=== PATIENT | male | born 1955 | race Caucasian/White ===

== ENCOUNTER 2017-12-08 15:59 | Observation (INO) ==
[2017-12-08] MEDS ORDERED: Naloxone 0.4 MG/ML INJ IVP PRN (23:34)
[2017-12-08] MEDS ORDERED: Acetaminophen 325 MG TABLET PO PRN (23:34)
[2017-12-08] MEDS ORDERED: Ondansetron 4 MG/2 ML VIAL IVP PRN (23:36)
--- NOTE | 2017-12-08 23:55 | Internal Med History&Physical ---
Date of Encounter: 12/09/17 Time of Encounter: 23:00 Internal Medicine - H&P: HPI Chief complaint: Acute encephalopathy Admitted From: Hospital to Hospital Transfer Plans for Post Hospital Care: Home History of present illness: Mr. Ch is a 62 year old male Patient presented to the [facility] emergency room with a chief complaint of confusion as noted by patient's sister. History obtained from [facility] emergency room record, family not at bedside during examination at [facility]. ER record notes that the patient's sister has noted increased confusion , vomiting, diarrhea for the last day. Patient has not been taking his medications and stated that his "nerves are shot, I want to be left alone." In the emergency room patient's BMP is within normal limits, CBC showed a white blood cell count of 146.8, and platelets of 172. Patient has a history of CLL and cirrhosis. Patient's ammonia level is 19, alkaline phosphatase was 63, AST 66, ALT 81. Patient's urinalysis was negative for nitrites and leukocyte esterase. Urine tox screen was positive for cannabis and benzodiazepines. Patient's blood alcohol level was less than 10. Chest x-ray performed showed no acute findings, and CT head was also negative. EKG showed sinus bradycardia with a rate of 47 and a QTc of 419. He was transferred to [facility] for further evaluation of his acute encephalopathy. Upon my assessment patient is alert and oriented to self, place and time. He is confused and does not answer my questions very well often going down tangents of thought. He seems agitated and angry with his sister for getting him admitted to the hospital. He denies nausea, chest pain and shortness of breath. He did have some vomiting and diarrhea the day prior to admission but not any today. He states that he has not been taking his medicine because he ran out in his doctor will not give it to him. Past Med Surg Social Fam HX - Past Medical History Additional medical history: patient unable to provide any information - Past Surgical History Additional surgical history: patient unable to provide any information - Social History Smoking Status: Unknown if ever smoked Internal Medicine - H&P: Meds 3 Allergy/AdvReac Type Severity Reaction Status Date / Time morphine Allergy Nausea Verified 12/08/17 18:36 All Systems PM: A 10-system review of systems was performed and is negative for pertinent findings except as documented above in the HPI. - Constitutional Vitals: Temp Pulse Resp BP Pulse Ox 98 F 57 18 119/74 98 12/08/17 23:45 12/08/17 23:45 12/08/17 23:45 12/08/17 23:45 12/08/17 23:45 General appearance: Present: cooperative, A&O X 3. Absent: pleasant, answers questions appropriately Exam: Irritable, oriented to self, place, time. Did not answer exam questions appropriately, often going off on tangents. - Head Head exam: Present: normal inspection - Eye Eye exam: Present: EOMI, normal appearance - Neck Neck exam general surgery: Present: full ROM - Respiratory Respiratory exam: Present: CTAB. Absent: respiratory distress, wheezes - Cardiovascular Cardiovascular exam: Present: bradycardia, RRR. Absent: diastolic murmur, systolic murmur - GI/Abdominal GI/Abdominal exam: Present: normal bowel sounds, soft. Absent: tenderness - Extremities Exam Extremities exam: Present: warm, radial pulses palpable and symmetrical. Absent : calf tenderness, pedal edema, tenderness - Neurological Exam Neurological exam: Present: no focal deficits, strengths equal and symetr throughout. Absent: motor sensory deficit, facial droop, speech deficit - Psychiatric Psychiatric exam: Present: agitated - Skin Skin exam: Present: dry, normal color, warm - Assessment and plan (1) Acute encephalopathy Current Visit: Yes Status: Acute Assessment and plan: Patient often would get off on his are tangential thoughts that had nothing to do with questions that I asked him during the exam. According to ER records and the sister of the patient this is a new finding for him. U tox positive for benzodiazepines and marijuana. Patient does state that he smokes marijuana often and has been using it to help with his chronic medical problems. He also uses benzodiazepines for anxiety. His UA was negative for infection, he does have a significant history of CLL and cirrhosis. His ammonia level was not elevated however his white blood cell count was significantly elevated. He has not been following up with his oncology doctors. Patient's workup essentially normal besides the urine tox screen, which is likely contributing to his confusion. Patient's recent history of possible gastroenteritis could also contribute to confusion. Hold sedating medications particularly benzodiazepines Patient currently does not require a bedside sitter however will consider if patient becomes more confused. Psychiatry consult in the morning (2) Nausea & vomiting Current Visit: Yes Status: Acute Assessment and plan: Now resolved, likely possibly related to viral gastroenteritis. Continue to monitor Zofran as needed Qualifiers: Qualified Code(s): R11.2 - Nausea with vomiting, unspecified (3) Bradycardia Current Visit: Yes Status: Acute Assessment and plan: Patient's heart rate was 47 on EKG. Unclear if this is baseline for patient as no previous history exists in our records. color television console monitor (4) History of chronic lymphocytic leukemia Current Visit: Yes Status: Acute Assessment and plan: Patient has history of CLL, with elevated white blood cell count. Has not been following with oncology. (5) Nicotine dependence Current Visit: Yes Status: Acute Assessment and plan: Nicotine patch Qualifiers: Nicotine product type: cigarettes Substance use status: uncomplicated Qualified Code(s): F17.210 - Nicotine dependence, cigarettes, uncomplicated (6) Marijuana smoker Current Visit: Yes Status: Acute Assessment and plan: Daily marijuana use. Hold marijuana exposure as could be contributing to his encephalopathy (7) History of cirrhosis Current Visit: Yes Status: Acute Assessment and plan: Ammonia level not elevated, patient also has history of hep C. Continue to monitor (8) History of alcohol abuse Current Visit: Yes Status: Acute Assessment and plan: Alcohol level less than 10. No signs of withdrawal at this time. Consider CIWA patient presenting with withdrawal like symptoms (9) DVT prophylaxis Current Visit: Yes Status: Acute Assessment and plan: SCDs - Time Spent With Patient Total time spent is greater than 50% in coordination of care (as documented) at patient's floor/unit and/or counseling patient: Greater than 35 minutes
[2017-12-09] MEDS ORDERED: *HR* Dextrose 50 % in Water (Syg) 50 ML SYRINGE IVP PRN (00:02)
[2017-12-09] MEDS ORDERED: D5% in Water 1,000 ML IVC PRN (00:02)
[2017-12-09] MEDS ORDERED: Dextrose Gel 15 GM/37.5 ML TUBE PO PRN ×2 (00:02)
[2017-12-09] MEDS: Nicotine 21 MG PATCH.TD24 TD SCH ×2 (01:41→09:47)
[2017-12-09 04:40] LABS: Hematocrit 40.6 % (37.5-50.1); Mean Corpuscular Volume 90.4 fL (83.0-100.0); Mean Platelet Volume 10.6 fL (9.4-12.4); Platelet Count 144 K/mcL (140-400); Red Blood Count 4.49 M/mcL (4.19-5.50); Red Cell Distribution Width 13.4 % (11.5-14.5)
[2017-12-09 05:00] LABS: BUN/Creatinine Ratio 21 (6-26); Blood Urea Nitrogen 18 mg/dL (8-23); Calcium 8.7 mg/dL (8.6-10.3); Carbon Dioxide 26 mEq/L (23-29); Chloride 104 mEq/L (98-107); Glucose 135 mg/dL (70-105); Osmolality,Calculated 288 (280-300); Potassium 4.2 mEq/L (3.5-5.1); Sodium 137 mEq/L (136-145); eGFR For Non-African Americans > 60 (> 60)
[2017-12-09 05:40] LABS: Lymphocytes # 127.8 K/mcL (0.6-4.6); Neutrophils # 5.3 K/mcL (1.6-8.9); Smudge Cells Present (Not Present)
[2017-12-09 05:41] LABS: Platelet Estimate Normal (Normal)
[2017-12-09] MEDS: Insulin LISPRO 300 UNITS/3 ML VIAL SQ SCH ×4 (07:56→20:42)
[2017-12-09] MEDS ORDERED: *HR* LORazepam 2 MG/ML VIAL IVP ONE (09:39)
[2017-12-09] MEDS ORDERED: Gadolinium Contrast Agent (WT Based) IV PRN (09:45)
[2017-12-09] MEDS ORDERED: *HR* LORazepam 1 MG TABLET PO ONE (10:05)
--- NOTE | 2017-12-09 11:10 | Consult Note ---
Date of Encounter: 12/09/17 Time of Encounter: 10:15 Assessment & Recommendation (1) Acute encephalopathy Current visit: Yes Status: Acute (2) Marijuana smoker Current visit: Yes Status: Acute History of Present Illness Patient: new to practice Requesting Physician: Bianka Le MD Reason for consult: altered mental status History of present illness: Mr. Ch is a 62 year old male was consulted for Altered metal status. Chart reviewed , he has h/o multiple medical problems including CLL , Chirosis and his tox was positive for marijuana and benzo, At present was able to give some history but had intermittent periods of confusion , his thought process was tangential and he had to be redirected several times. he states he takes medicine for his nerves and they stopped it , they had been changing his medication and he was out of his medicine , denied using more than prescribed his nerve pills, he stated he has cancer and has not seen his cancer doctor , he denied any alcohol , he denied any street drugs, he admitted to seeing shadows but no auditory hallucination , no agitation noted during interview, no paranoia. he denies any other psychiatric signs/symptoms, denies any other psych h/o, no collateral available at [facility]. A/P AMS secondary to medical illness. if agitated can give low dose haldol , no other recommendation. Thank you for consult Will sign off , if any question please call. CC: Bianka Le MD I am sick , they keep changing my medicine. Past Med Surg Social Fam HX - Past Psychiatric History Psychiatric history: Reports: no psych history Family psychiatric history: Unknown Family History of Suicide: Unknown - Social History Smoking Status: Unknown if ever smoked Medications & Allergies Esomeprazole Magnesium [Nexium] 40 mg PO DAILY 12/09/17 [History] Furosemide [Lasix] 40 mg PO DAILY 12/09/17 [History] Gabapentin [Neurontin] 400 mg PO BID 12/09/17 [History] Lisinopril 2.5 mg PO DAILY 12/09/17 [History] Metformin HCl 500 mg PO DAILY 12/09/17 [History] Metoprolol [Lopressor] 12.5 mg PO BID 12/09/17 [History] Ranitidine HCl [Acid Plastics Factory Worker] 150 mg PO BID 12/09/17 [History] Spironolactone [Aldactone] 100 mg PO DAILY 12/09/17 [History] Tamsulosin HCl [Flomax] 0.4 mg PO DAILY 12/09/17 [History] diazePAM [Valium] 2 mg PO TID 12/09/17 [History] traZODone [TraZODone] 50 mg PO HS 12/09/17 [History] 3 Allergy/AdvReac Type Severity Reaction Status Date / Time morphine Allergy Nausea Verified 12/08/17 18:36 Psychiatry Exam - Constitutional Vitals: Temp Pulse Resp BP Pulse Ox 98.2 F 57 18 133/78 97 12/09/17 06:50 12/09/17 06:50 12/09/17 06:50 12/09/17 06:50 12/09/17 06:50 General appearance: thin - Psychiatric Patient Orientation: Yes Time, Yes Place Level of alertness: Alert Behavior: calm, cooperative Eye Contact: Maintains Eye Contact Mood Description: Euthymic/stable Affect description: constricted Speech Volume: Normal Speech pattern: excessive Language & Vocabulary: consistent with education Thought Process: Tangential Thought Content: Yes Intact Perceptual Disturbances: No Auditory hallucinations, No Visual hallucinations Attention Span Ability: Unable to Sustain Attention Judgment: Limited (secondary to AMS) Insight: Full Results - Labs Labs: Laboratory Last Values WBC 133.1 K/mcL (4.3-11.1) H* 12/09/17 04:04 RBC 4.49 M/mcL (4.19-5.50) 12/09/17 04:04 Hgb 13.0 g/dL (12.9-16.9) 12/09/17 04:04 Hct 40.6 % (37.5-50.1) 12/09/17 04:04 MCV 90.4 fL (83.0-100.0) 12/09/17 04:04 MCH 29.0 pg (28.0-33.3) 12/09/17 04:04 MCHC 32.0 g/dL (31.6-35.5) 12/09/17 04:04 RDW 13.4 % (11.5-14.5) 12/09/17 04:04 Plt Count 144 K/mcL (140-400) 12/09/17 04:04 MPV 10.6 fL (9.4-12.4) 12/09/17 04:04 Seg Neutrophils % 4.0 % 12/09/17 04:04 Lymphocytes % 96.0 % 12/09/17 04:04 Neutrophils # 5.3 K/mcL (1.6-8.9) 12/09/17 04:04 Lymphocytes # 127.8 K/mcL (0.6-4.6) H 12/09/17 04:04 Smudge Cells Present (Not Present) A 12/09/17 04:04 Platelet Estimate Normal (Normal) 12/09/17 04:04 Sodium 137 mEq/L (136-145) 12/09/17 04:04 Potassium 4.2 mEq/L (3.5-5.1) 12/09/17 04:04 Chloride 104 mEq/L (98-107) 12/09/17 04:04 Carbon Dioxide 26 mEq/L (23-29) 12/09/17 04:04 BUN 18 mg/dL (8-23) 12/09/17 04:04 Creatinine 0.86 mg/dL (0.70-1.30) 12/09/17 04:04 Est GFR ( Amer) > 60 (> 60) 12/09/17 04:04 Est GFR (Non-Af Amer) > 60 (> 60) 12/09/17 04:04 BUN/Creatinine Ratio 21 (6-26) 12/09/17 04:04 Glucose 135 mg/dL (70-105) H 12/09/17 04:04 POC Glucose 99 mg/dL (70-99) 12/09/17 07:40 Calculated Osmolality 288 (280-300) 12/09/17 04:04 Calcium 8.7 mg/dL (8.6-10.3) 12/09/17 04:04 Consult Discharge Plan - Plan Referrals: NONE,PCP [Primary Care Provider] - Lora Schultz [Family Provider] -
--- NOTE | 2017-12-09 12:14 | Internal Med Progress Note ---
Hospitalist Progress Note - Encounter Date of Encounter: 12/09/17 Time of Encounter: 12:10 - Subjective Interval History: She is seen and examined in the room, is having constant left-sided body and left face j jerking movement, eyes also moving towards the left side. He maintains his posture, but does not answer any questions. - Exam Vitals: Temp Pulse Resp BP Pulse Ox 98.1 F 73 18 143/82 98 12/09/17 12:02 12/09/17 12:02 12/09/17 12:02 12/09/17 12:12/09/17 12:02 Exam: PHYSICAL EXAMINATION: GENERAL APPEARANCE: The patient is alert, oriented and in no acute distress. HEENT: Head is normocephalic. The sinuses are nontender. Pupils are equal and reactive. The nares are patent. Oropharynx clear without lesions. NECK: Supple without lymphadenopathy. HEART: Regular rate and rhythm. LUNGS: No crackles or wheezes are heard. ABDOMEN: Soft, nontender, nondistended with good bowel sounds heard. Inguinal area is normal. EXTREMITIES: Without cyanosis, clubbing or edema. NEUROLOGICAL: Gross nonfocal. SKIN: Warm and dry without any rash. - Assessment and Plan (1) Acute encephalopathy Current Visit: Yes Status: Acute Assessment and Plan: 82-year-old male with past medical history of anxiety, LDL, and alcohol abuse presented with another status change. Labs revealed a positive drug screen test with benzodiazepine and the marijuana. He also had presumably seizure activity this morning. 2 mg IV Ativan was given, patient mental status quickly recovered to his baseline. He is able to talk and answer questions. - he take a Valium 3 times a day at home, we will resume Valium. Neurology consult. MRI brain was ordered. - Psychiatry was consulted, suggested that the mental status change may be caused by metabolic/medication side effect. - Continue IV fluid, continue seizure precaution. (2) Nausea & vomiting Current Visit: Yes Status: Acute Assessment and Plan: Supportive care. (3) History of chronic lymphocytic leukemia Current Visit: No Status: Chronic Assessment and Plan: Hematology/oncology consulted. (4) Marijuana smoker Current Visit: Yes Status: Acute (5) History of cirrhosis Current Visit: Yes Status: Acute Assessment and Plan: Stable, monitoring. (6) History of alcohol abuse Current Visit: Yes Status: Acute Assessment and Plan: Discussed with patient about alcohol cessation. (7) DVT prophylaxis Current Visit: Yes Status: Acute Assessment and Plan: SCDs. - Time Spent with Patient Total time spent is greater than 50% in coordination of care (as documented) at patient's floor/unit and/or counseling patient: Greater than 35 minutes Plan of Care Discussed with: patient Internal Medicine: Result - Labs CBC & Chem 7: 12/09/17 04:04 12/09/17 04:04 Labs: Short CBC 12/09/17 Range/Units 04:04 WBC 133.1 H* (4.3-11.1) K/mcL Hgb 13.0 (12.9-16.9) g/dL Hct 40.6 (37.5-50.1) % Plt Count 144 (140-400) K/mcL Neutrophils # 5.3 (1.6-8.9) K/mcL BMP 12/09/17 04:04 Sodium 137 Potassium 4.2 Chloride 104 Carbon Dioxide 26 BUN 18 Creatinine 0.86 Glucose 135 H Calcium 8.7 Consult Discharge Plan - Plan Referrals: NONE,PCP [Primary Care Provider] - Lora Schultz [Family Provider] - (2) Nausea & vomiting Qualifiers: Vomiting type: unspecified Vomiting Intractability: unspecified Qualified Code(s): R11.2 - Nausea with vomiting, unspecified
--- NOTE | 2017-12-09 13:07 | Oncology Inp Consult Note ---
<Jordyn Grimm L - Last Filed: 12/09/17 16:33> Date of Encounter: 12/09/17 Time of Encounter: 12:30 Assessment and Plan (1) Acute encephalopathy Status: Acute Assessment and plan: This process is likely unrelated to his CLL CT head negative per admission record MRI brain pending May be multifactorial secondary to benzo, alcohol withdrawal and use of recreational drugs versus metabolic Psychiatry consult reviewed, Neuro has also been consulted (2) History of chronic lymphocytic leukemia Status: Chronic Assessment and plan: Currently WBC 133, Lymphocyte count 127 No other noted CBC abnormality or cytopenia He does not recall prior counts or his last visit with [facility] He does report fevers, chills, night sweats and weight loss but this may be secondary to his acute gastrointestinal process, he also appears to be a very poor historian/confused at times. He does have palpable left posterior auricular, left cervical and right supraclavicular adenopathy No acute oncologic intervention is warranted at this time. I do encourage continued follow up with oncology for close monitoring of his symptoms and lymphadenopathy once his acute issues resolve. He prefers to follow up with [facility] versus [facility]. We will check an LDH with AM labs. - Data of Consult Patient: new to practice Consult date: 12/09/17 Requesting Physician: Bianka Le MD Primary Care Provider: PCP DALIA Family Provider: [place] Provider - Consult Narrative Reason for consult: CLL History of present illness: Mr. Ch is a 62 year old male with past medical history significant for CLL and cirrhosis according to chart review. Patient himself is a poor historian, and while he appears oriented presently, he appears to have intermittent periods of confusion and needs redirection often. He states he presented to ER because he was "out of all of his medications". From chart review, it appears that patient initially presented to [facility] ER under the care of patients sister secondary to her concern over patients increased confusion. CBC showed a white blood cell count of 146.8, and platelets of 172. Patient has a history of CLL and cirrhosis. Patient's ammonia level is 19, alkaline phosphatase was 63, AST 66, ALT 81. Patient's urinalysis was negative for nitrites and leukocyte esterase. Urine tox screen was positive for cannabis and benzodiazepines. Patient's blood alcohol level was less than 10. Chest x-ray performed showed no acute findings, and CT head was also negative. EKG showed sinus bradycardia with a rate of 47. He was transferred to [facility] for further evaluation of his acute encephalopathy. Mr. Ch states he was diagnosed with CLL an uncertain time ago, he has not follow up with his oncologist at [facility] for an unknown period of time. According to patient he was only previously monitored for his CLL which has not required initiation of treatment. When questioned in regards to ROS, Mr. Ch reports decreased appetite, unintended weight loss, painful lymphadenopathy, fever, chills and night sweats. He reports increased fatigue, abdominal pain, nausea and vomiting which has been acute and led to his presentation to the ER. Past Med Surg Social Fam HX - Past Medical History Additional medical history: patient unable to provide any information Psychiatric history: no psych history - Past Surgical History Additional surgical history: patient unable to provide any information - Social History Smoking Status: Unknown if ever smoked Medications and Allergies Esomeprazole Magnesium [Nexium] 40 mg PO DAILY 12/09/17 [History] Furosemide [Lasix] 40 mg PO DAILY 12/09/17 [History] Gabapentin [Neurontin] 400 mg PO BID 12/09/17 [History] Lisinopril 2.5 mg PO DAILY 12/09/17 [History] Metformin HCl 500 mg PO DAILY 12/09/17 [History] Metoprolol [Lopressor] 12.5 mg PO BID 12/09/17 [History] Ranitidine HCl [Acid Maintenance Person] 150 mg PO BID 12/09/17 [History] Spironolactone [Aldactone] 100 mg PO DAILY 12/09/17 [History] Tamsulosin HCl [Flomax] 0.4 mg PO DAILY 12/09/17 [History] diazePAM [Valium] 2 mg PO TID 12/09/17 [History] traZODone [TraZODone] 50 mg PO HS 12/09/17 [History] 3 Allergy/AdvReac Type Severity Reaction Status Date / Time morphine Allergy Nausea Verified 12/08/17 18:36 Constitutional: Present: anorexia, chills, fatigue, fever(s), night sweats, weakness, weight loss. Absent: frequent falls, headache(s) Eyes: Absent: change in vision Nose, mouth and throat: Absent: dysphagia Cardiovascular: Absent: chest pain Respiratory: Absent: cough, dyspnea, hemoptysis Gastrointestinal: Present: abdominal pain, diarrhea, nausea, vomiting. Absent: hematemesis, hematochezia, melena Additional comments: denies dysuria Musculoskeletal: Present: muscle weakness Integumentary: Absent: wounds Neurological: Present: confusion. Absent: focal weakness, frequent falls Psychiatric: Present: confusion, hallucinations Hematologic/Lymphatic: Present: lymphadenopathy Oncology - Exam - Constitutional Vitals: Temp Pulse Resp BP Pulse Ox 98.1 F 73 18 143/82 98 12/09/17 12:02 12/09/17 12:02 12/09/17 12:02 12/09/17 12:02 12/09/17 12:02 General appearance: cooperative, disheveled, no acute distress, no febrile - Head Head exam: Present: atraumatic - ENT ENT exam: Present: mucous membranes moist - Neck Neck exam: Present: lymphadenopathy Additional comments: left posterior auricular, left cervical, right supraclavicular - Respiratory Respiratory exam: Present: CTAB. Absent: respiratory distress - Cardiovascular Cardiovascular exam: Present: RRR, +S1, +S2 - GI/Abdominal GI/Abdominal exam: Present: normal bowel sounds, soft. Absent: guarding, rebound - Extremities Exam Extremities exam: Present: normal inspection. Absent: calf tenderness - Neurological Exam Neurological exam: Present: alert, oriented X3, no focal deficits, strengths equal and symetr throughout - Psychiatric Psychiatric exam: Present: normal affect, normal mood. Absent: agitated Additional comments: Tangential thought process noted - Skin Skin exam: Present: dry, intact, normal color, warm Oncology - Results Labs: 3 12/09/17 12/09/17 12/09/17 12:00 07:40 04:04 WBC RBC Hgb Hct MCV MCH MCHC RDW Plt Count MPV Seg Neutrophils % Lymphocytes % Neutrophils # Lymphocytes # Smudge Cells Platelet Estimate Sodium 137 Potassium 4.2 Chloride 104 Carbon Dioxide 26 BUN 18 Creatinine 0.86 Est GFR ( Amer) > 60 Est GFR (Non-Af Amer) > 60 BUN/Creatinine Ratio 21 Glucose 135 H POC Glucose 104 H 99 Calculated Osmolality 288 Calcium 8.7 3 12/09/17 04:04 WBC 133.1 H* RBC 4.49 Hgb 13.0 Hct 40.6 MCV 90.4 MCH 29.0 MCHC 32.0 RDW 13.4 Plt Count 144 MPV 10.6 Seg Neutrophils % 4.0 Lymphocytes % 96.0 Neutrophils # 5.3 Lymphocytes # 127.8 H Smudge Cells Present A Platelet Estimate Normal Sodium Potassium Chloride Carbon Dioxide BUN Creatinine Est GFR ( Amer) Est GFR (Non-Af Amer) BUN/Creatinine Ratio Glucose POC Glucose Calculated Osmolality Calcium Consult Discharge Plan - Plan Referrals: NONE,PCP [Primary Care Provider] - Lora Schultz [Family Provider] - Inpatient Charges Provider: Dr. Hung Somers <Lauri Somers - Last Filed: 12/09/17 21:04> Date of Encounter: 12/09/17 - Data of Consult Requesting Physician: Bianka Le MD Primary Care Provider: PCP NONE Family Provider: [place] Provider - Consult Narrative History of present illness: Mr. Ch is a 62 year old male Oncology - Exam - Constitutional Vitals: Temp Pulse Resp BP Pulse Ox 98.2 F 92 16 131/86 96 12/09/17 19:12 12/09/17 19:12 12/09/17 19:12 12/09/17 19:12 12/09/17 19:12 Oncology - Results Labs: 3 12/09/17 12/09/17 12/09/17 12:00 07:40 04:04 WBC RBC Hgb Hct MCV MCH MCHC RDW Plt Count MPV Seg Neutrophils % Lymphocytes % Neutrophils # Lymphocytes # Smudge Cells Platelet Estimate Sodium 137 Potassium 4.2 Chloride 104 Carbon Dioxide 26 BUN 18 Creatinine 0.86 Est GFR ( Amer) > 60 Est GFR (Non-Af Amer) > 60 BUN/Creatinine Ratio 21 Glucose 135 H POC Glucose 104 H 99 Calculated Osmolality 288 Calcium 8.7 3 12/09/17 04:04 WBC 133.1 H* RBC 4.49 Hgb 13.0 Hct 40.6 MCV 90.4 MCH 29.0 MCHC 32.0 RDW 13.4 Plt Count 144 MPV 10.6 Seg Neutrophils % 4.0 Lymphocytes % 96.0 Neutrophils # 5.3 Lymphocytes # 127.8 H Smudge Cells Present A Platelet Estimate Normal Sodium Potassium Chloride Carbon Dioxide BUN Creatinine Est GFR ( Amer) Est GFR (Non-Af Amer) BUN/Creatinine Ratio Glucose POC Glucose Calculated Osmolality Calcium - Attending Attestation I have seen and examined Mr. Ch and agree with Ms. Grimm's assessment. He has CLL with associated palpable adenopathy about the neck and supraclavicular regions. Significant lymphocytosis without anemia or thrombocytopenia as one would expect. He may have had fever/chills/night sweats, but no fever documented since admission; patient is very poor historian. In any case, CLL is not contributing to encephalopathy. MRI has been recommended by neurology is reaonable, but [employer] complications from CLL exceedingly rare. We will assess LDH and would recommend f/u with local oncologist after discharge. We will otherwise sign off pending lab and MRI results. Inpatient Charges Provider: Dr. Hung Somers Consult - Inpatient: [id number]
[2017-12-09] MEDS ORDERED: diazePAM 2 MG TABLET PO SCH (15:00)
--- NOTE | 2017-12-09 15:55 | Neurology - Consult Note ---
Date of Encounter: 12/09/17 Time of Encounter: 08:10 Assessment and Plan (1) Altered mental status Current Visit: Yes Status: Acute This patient who is been admitted with mental status changes without any focal findings on his neurological examination in particularly no evidence of any focal lateralizing sign of his stroke or off meningitis His mental status changes are likely related to the withdrawal of the medication he is been high doses of gabapentin as well as and Valium for quite some time at the same time he is also using marijuana which is probably contributing to his symptoms. Regardless suggest that he should be on withdrawal precautions strongly recommend that we start him on low-dose of Ativan or the Valium to avoid any significant withdrawal at the same time check for other metabolic abnormalities in particularly timing and vitamin B12 deficiencies. With a history of CLL also suggest getting an MRI of the brain with and without contrast to make sure there is no underlying abnormality. Beside that other treatment is as per primary team, Qualifiers: Altered mental status type: disorientation Qualified Code(s): R41.0 - Disorientation, unspecified (2) History of chronic lymphocytic leukemia Current Visit: No Status: Chronic (3) Marijuana smoker Current Visit: Yes Status: Acute History of Present Illness HPI: Mr. Ch is a 62 year old male transfered from [facility] emergency room with a chief complaint of confusion as noted by patient's sister. History obtained from [facility] emergency room record, he noted increased confusion, vomiting, diarrhea for the last day. Patient has not been taking his medications and stated that his "nerves are shot, I want to be left alone." Patient has a history of CLL and cirrhosis. Patient's ammonia level is 19, alkaline phosphatase was 63, AST 66, ALT 81. Urine tox screen was positive for cannabis and benzodiazepines. He denies nausea, chest pain and shortness of breath. He states that he has not been taking his medicine because he ran out in his doctor will not give it to him. Past Med Surg Social Fam HX - Past Medical History Additional medical history: patient unable to provide any information Psychiatric history: no psych history - Past Surgical History Additional surgical history: patient unable to provide any information - Social History Smoking Status: Unknown if ever smoked Medications and Allergies Esomeprazole Magnesium [Nexium] 40 mg PO DAILY 12/09/17 [History] Furosemide [Lasix] 40 mg PO DAILY 12/09/17 [History] Gabapentin [Neurontin] 400 mg PO BID 12/09/17 [History] Lisinopril 2.5 mg PO DAILY 12/09/17 [History] Metformin HCl 500 mg PO DAILY 12/09/17 [History] Metoprolol [Lopressor] 12.5 mg PO BID 12/09/17 [History] Ranitidine HCl [Acid Forest Worker] 150 mg PO BID 12/09/17 [History] Spironolactone [Aldactone] 100 mg PO DAILY 12/09/17 [History] Tamsulosin HCl [Flomax] 0.4 mg PO DAILY 12/09/17 [History] diazePAM [Valium] 2 mg PO TID 12/09/17 [History] traZODone [TraZODone] 50 mg PO HS 12/09/17 [History] 3 Allergy/AdvReac Type Severity Reaction Status Date / Time morphine Allergy Nausea Verified 12/08/17 18:36 All Systems: The remainder of the systems were reviewed and are negative Physical Examination - Vital Signs Vital Signs: Initial Vital Signs Temp Pulse Resp BP 98.5 F 52 16 103/63 12/08/17 18:11 12/08/17 18:11 12/08/17 18:11 12/08/17 18:11 - Exam Exam: GENERAL: Comfortable in no acute distress HEENT: Normal LUNGS: CTA HEART: RRR, S1 S2 Audible, no murmur EXTREMITIES: No Pedal edema. DETAILED NEUROLOGICAL EXAMINATION: MENTAL STATUS: Oriented to person, place, date and situation. Memory: knows the President, Aware of recent events Recent Memory Intact attention span intact, anxious affect Cranial Nerve Examination: CN - II: Visual Acuity, Field of Vision Normal, Fundus examination: No disk edema, Pupils- size shape reaction to light and accommodation: All normal. CN III, IV, : External ocular movements were intact, Pupils were reactive, Nodrooping of the eyelids CN V: Sensation over the face to light touch and pinprick all normal. Corneal reflexes not tested, jaw jerk normal. CN VII: No facial asymmetry, no flattening of nasolabial folds, no difficulty in closing the eyes, no loss of forehead wrinkles, no difficulty in eye-closure, frowning raising eyebrows. CNVIII: No significant hearing loss CN IX, X: Uvula centralized not deviated, Gag reflex: Not tested CN X1: Sternocleidomastoid, trapezius, normal or evidence of any weakness. CN X11: No Dysarthria, no wasting or fibrilation f tongue muscles, no deviation, tongue muscle strength normal. Motor examination: No hypertrophy, tone was normal, power grade 0-5 Upper limbs Proximal- No difficulty in lifting the arms above the head. Distal- No weakness in distal muscles On formal testing 5/5 all over Lower limbs On formal testing 5/5 all over Coordination: [id number] normal. Target pursuit normal finger tapping normal, Rapid alternating moment of wrist normal Sensory system: Superficial sensations- Touch normal. Pain- Pinprick, Temperature all normal, Deep sensation normal, Joint position sense normal. Cortical sensation, Tactile discrimination, localization and extinction all normal. Deep tendon reflexes. Symmetrical bilateral, No evidence of Babinski. No sign of meningeal irritation Gait Examination: Deferred - Constitutional General appearance: comfortable - Neurologic Detailed motor examination: grossly full strength in all extremities Results - Laboratory Findings CBC and BMP: 12/09/17 04:04 12/09/17 04:04 Abnormal lab findings: Abnormal lab results WBC 133.1 K/mcL (4.3-11.1) H* 12/09/17 04:04 Lymphocytes # 127.8 K/mcL (0.6-4.6) H 12/09/17 04:04 Smudge Cells Present (Not Present) A 12/09/17 04:04 Glucose 135 mg/dL (70-105) H 12/09/17 04:04 POC Glucose 104 mg/dL (70-99) H 12/09/17 12:00 Consult Discharge Plan - Plan Referrals: NONE,PCP [Primary Care Provider] - Lora Schultz [Family Provider] -
[2017-12-09] MEDS: Gabapentin 400 MG CAPSULE PO SCH ×2 (17:01→20:42)
[2017-12-09] MEDS: traZODone 50 MG TABLET PO SCH (20:41)
[2017-12-09] MEDS: Famotidine 20 MG TABLET PO SCH (20:42)
[2017-12-09] MEDS: *HR* LORazepam 0.5 MG TABLET PO SCH (20:42)
[2017-12-09] MEDS ORDERED: Gabapentin 400 MG CAPSULE PO SCH (21:00)
[2017-12-10 05:46] LABS: Hematocrit 36.2 % (37.5-50.1); Hemoglobin 11.5 g/dL (12.9-16.9); Mean Corpuscular HGB Conc 31.8 g/dL (31.6-35.5); Mean Corpuscular Hemoglobin 28.7 pg (28.0-33.3); Mean Corpuscular Volume 90.3 fL (83.0-100.0); Mean Platelet Volume 10.9 fL (9.4-12.4); Platelet Count 113 K/mcL (140-400); Red Blood Count 4.01 M/mcL (4.19-5.50); Red Cell Distribution Width 13.2 % (11.5-14.5)
[2017-12-10] MEDS: Insulin LISPRO 300 UNITS/3 ML VIAL SQ SCH ×4 (08:07→21:36)
[2017-12-10] MEDS: Furosemide 40 MG TABLET PO SCH (08:11)
[2017-12-10] MEDS: *HR* LORazepam 0.5 MG TABLET PO SCH ×2 (08:11→21:35)
[2017-12-10] MEDS: Gabapentin 400 MG CAPSULE PO SCH ×2 (08:12→21:35)
[2017-12-10] MEDS: Famotidine 20 MG TABLET PO SCH ×2 (08:13→21:36)
[2017-12-10] MEDS: Nicotine 21 MG PATCH.TD24 TD SCH (08:15)
--- NOTE | 2017-12-10 10:47 | Neurology Progress Note ---
Date of Encounter: 12/10/17 Time of Encounter: 08:40 Assessment and Plan (1) Altered mental status Current Visit: Yes Status: Acute Mental status seems to improve doing better now awaits MRI of the brain for any structural abnormalities or any other intracranial abnormality with a history of CLL. Other treatment is as per primary team if MRI of the brain is negative okay to discharge from neurology standpoint Suggest to taper off all chronic narcotics as well as other medication and particularly habit-forming medication need to be monitored closely Qualifiers: Altered mental status type: disorientation Qualified Code(s): R41.0 - Disorientation, unspecified (2) History of chronic lymphocytic leukemia Current Visit: No Status: Chronic (3) Marijuana smoker Current Visit: Yes Status: Acute Subjective Interval history: Agent is stable no other new clinical sign and symptoms alert awake no focal motor deficit on scheduled doses of Ativan. Supposed to get an MRI with a history of CLL but somehow has not done it yet Objective - Constitutional Vitals: Temp Pulse Resp BP Pulse Ox 97.4 F L 76 18 123/74 90 12/10/17 07:58 12/10/17 07:58 12/10/17 07:58 12/10/17 07:58 12/10/17 07:58 - Neurological Exam Motor Examination: Present: grossly full strength in all extremities Results - Laboratory Findings CBC and BMP: 12/10/17 05:00 12/09/17 04:04 Abnormal lab findings: Abnormal lab results WBC 83.4 K/mcL (4.3-11.1) H* 12/10/17 05:00 RBC 4.01 M/mcL (4.19-5.50) L 12/10/17 05:00 Hgb 11.5 g/dL (12.9-16.9) L D 12/10/17 05:00 Hct 36.2 % (37.5-50.1) L 12/10/17 05:00 Plt Count 113 K/mcL (140-400) L 12/10/17 05:00 Lymphocytes # 127.8 K/mcL (0.6-4.6) H 12/09/17 04:04 Smudge Cells Present (Not Present) A 12/09/17 04:04 Glucose 135 mg/dL (70-105) H 12/09/17 04:04 POC Glucose 103 mg/dL (70-99) H 12/09/17 20:34 Consult Discharge Plan - Plan Referrals: NONE,PCP [Primary Care Provider] - Lora Schultz [Family Provider] -
--- NOTE | 2017-12-10 13:59 | Internal Med Progress Note ---
Hospitalist Progress Note - Encounter Date of Encounter: 12/10/17 Time of Encounter: 13:56 - Subjective Interval History: Pt seen and examined in the room. He is alert and oriented. He has no complaints at this time. - Exam Vitals: Temp Pulse Resp BP Pulse Ox 98.3 F 66 15 115/70 98 12/10/17 11:14 12/10/17 11:14 12/10/17 11:14 12/10/17 11:14 12/10/17 11:14 Exam: PHYSICAL EXAMINATION: GENERAL APPEARANCE: The patient is alert, oriented and in no acute distress. HEENT: Head is normocephalic. The sinuses are nontender. Pupils are equal and reactive. The nares are patent. Oropharynx clear without lesions. NECK: Supple without lymphadenopathy. HEART: Regular rate and rhythm. LUNGS: No crackles or wheezes are heard. ABDOMEN: Soft, nontender, nondistended with good bowel sounds heard. Inguinal area is normal. EXTREMITIES: Without cyanosis, clubbing or edema. NEUROLOGICAL: Gross nonfocal. SKIN: Warm and dry without any rash. - Assessment and Plan (1) Acute encephalopathy Current Visit: Yes Status: Acute Assessment and Plan: 82-year-old male with past medical history of anxiety, LDL, and alcohol abuse presented with another status change. Labs revealed a positive drug screen test with benzodiazepine and the marijuana. He also had presumably seizure activity this morning. 2 mg IV Ativan was given, patient mental status quickly recovered to his baseline. He is able to talk and answer questions. - he take a Valium 3 times a day at home, we will resume Valium. MRI brain was ordered. Neuro following. - Psychiatry was consulted, suggested that the mental status change may be caused by metabolic/medication side effect. - Continue IV fluid, continue seizure precaution. - Plan to dc home tomorrow with home health. (2) Nausea & vomiting Current Visit: Yes Status: Resolved (3) History of chronic lymphocytic leukemia Current Visit: No Status: Chronic Assessment and Plan: Hematology/oncology consulted. recommended outpt f/u. (4) Marijuana smoker Current Visit: Yes Status: Acute Assessment and Plan: discussed with pt about drug cessation. (5) History of cirrhosis Current Visit: Yes Status: Acute Assessment and Plan: Stable, monitoring. (6) History of alcohol abuse Current Visit: Yes Status: Acute Assessment and Plan: Discussed with patient about alcohol cessation. (7) DVT prophylaxis Current Visit: Yes Status: Acute Assessment and Plan: SCDs. - Time Spent with Patient Total time spent is greater than 50% in coordination of care (as documented) at patient's floor/unit and/or counseling patient: Greater than 35 minutes Plan of Care Discussed with: patient Internal Medicine: Result - Labs CBC & Chem 7: 12/10/17 05:00 12/09/17 04:04 Labs: Short CBC 12/10/17 Range/Units 05:00 WBC 83.4 H* (4.3-11.1) K/mcL Hgb 11.5 L D (12.9-16.9) g/dL Hct 36.2 L (37.5-50.1) % Plt Count 113 L (140-400) K/mcL Consult Discharge Plan - Plan Referrals: NONE,PCP [Primary Care Provider] - Lora Schultz [Family Provider] - (2) Nausea & vomiting Qualifiers: Vomiting type: unspecified Vomiting Intractability: unspecified Qualified Code(s): R11.2 - Nausea with vomiting, unspecified
[2017-12-10] MEDS: traZODone 50 MG TABLET PO SCH (21:35)
[2017-12-10] MEDS ORDERED: Acetaminophen 325 MG TABLET PO ONE (23:29)
[2017-12-11 04:20] LABS: Hematocrit 36.1 % (37.5-50.1); Hemoglobin 11.7 g/dL (12.9-16.9); Mean Corpuscular HGB Conc 32.4 g/dL (31.6-35.5); Mean Corpuscular Hemoglobin 28.9 pg (28.0-33.3); Mean Corpuscular Volume 89.1 fL (83.0-100.0); Mean Platelet Volume 10.6 fL (9.4-12.4); Platelet Count 103 K/mcL (140-400); Red Blood Count 4.05 M/mcL (4.19-5.50); Red Cell Distribution Width 13.2 % (11.5-14.5)
[2017-12-11 04:39] LABS: BUN/Creatinine Ratio 18 (6-26); Blood Urea Nitrogen 15 mg/dL (8-23); Carbon Dioxide 26 mEq/L (23-29); Chloride 108 mEq/L (98-107); Glucose 101 mg/dL (70-105); Osmolality,Calculated 287 (280-300); Potassium 4.4 mEq/L (3.5-5.1); Sodium 138 mEq/L (136-145); eGFR For Non-African Americans > 60 (> 60)
[2017-12-11 05:13] LABS: Lymphocytes # 74.8 K/mcL (0.6-4.6); Monocytes # 1.6 K/mcL (0.0-1.3); Neutrophils # 4.9 K/mcL (1.6-8.9); Platelet Estimate Decreased (Normal)
[2017-12-11 05:14] LABS: Reactive Lymphocytes Present (Not Present); Smudge Cells Present (Not Present)
[2017-12-11] MEDS: Insulin LISPRO 300 UNITS/3 ML VIAL SQ SCH ×2 (07:07→11:40)
[2017-12-11] MEDS: Gabapentin 400 MG CAPSULE PO SCH (08:52)
[2017-12-11] MEDS: *HR* LORazepam 0.5 MG TABLET PO SCH (08:52)
[2017-12-11] MEDS: Furosemide 40 MG TABLET PO SCH (08:53)
[2017-12-11] MEDS: Famotidine 20 MG TABLET PO SCH (08:55)
[2017-12-11] MEDS: Nicotine 21 MG PATCH.TD24 TD SCH (08:59)
--- NOTE | 2017-12-11 10:42 | Neurology Progress Note ---
<Yanira Olivier N - Last Filed: 12/11/17 10:38> Date of Encounter: 12/11/17 Time of Encounter: 10:39 Assessment and Plan (1) Altered mental status Current Visit: Yes Status: Acute Appropriate mental status today, patient is awake and alert. MRI findings did not reveal any acute intracranial abnormalities. Neurology will sign off, please reach out with any question Recommend tapering off benzodiazepines Qualifiers: Altered mental status type: disorientation Qualified Code(s): R41.0 - Disorientation, unspecified (2) History of chronic lymphocytic leukemia Current Visit: No Status: Chronic (3) Marijuana smoker Current Visit: Yes Status: Acute Subjective Principal diagnosis: Altered mental status Interval history: seen and examined at bed side. Awake, alert, and maintains apropriate conversation. Complains of left shoulder pain that is chronic. MRI did not reveal any acute intracranial abnormality aside from a nonspecific finding in the cervical vertebral bodies that may be secondary to a marrow infiltrative process such as his CLL. Objective - Constitutional Vitals: Temp Pulse Resp BP Pulse Ox 98.2 F 64 16 110/74 97 12/11/17 06:39 12/11/17 06:39 12/11/17 06:39 12/11/17 06:39 12/11/17 06:39 - Neurological Exam Motor Examination: Present: grossly full strength in all extremities Results - Laboratory Findings CBC and BMP: 12/11/17 04:05 12/11/17 04:05 Abnormal lab findings: Abnormal lab results WBC 81.3 K/mcL (4.3-11.1) H* 12/11/17 04:05 RBC 4.05 M/mcL (4.19-5.50) L 12/11/17 04:05 Hgb 11.7 g/dL (12.9-16.9) L 12/11/17 04:05 Hct 36.1 % (37.5-50.1) L 12/11/17 04:05 Plt Count 103 K/mcL (140-400) L 12/11/17 04:05 Lymphocytes # 74.8 K/mcL (0.6-4.6) H 12/11/17 04:05 Monocytes # 1.6 K/mcL (0.0-1.3) H 12/11/17 04:05 Reactive Lymphocytes Present (Not Present) A 12/11/17 04:05 Smudge Cells Present (Not Present) A 12/11/17 04:05 Platelet Estimate Decreased (Normal) L 12/11/17 04:05 Chloride 108 mEq/L (98-107) H 12/11/17 04:05 POC Glucose 101 mg/dL (70-99) H 12/10/17 21:15 Consult Discharge Plan - Plan Referrals: NONE,PCP [Primary Care Provider] - Lora Schultz [Family Provider] - <Jesús Nair I - Last Filed: 12/11/17 11:15> Date of Encounter: 12/11/17 Assessment and Plan (1) Altered mental status Current Visit: Yes Status: Acute Pt was seen and examined, my medical decision was reviewed with the Resident Physician, I agree with the documented findings, disposition and treatment plas as described except to the extent set forth below No acute finding on MRI of the brain intracranially , there is a change in signal in the cervical portion may get CT of the cervical spine, if anything abnormal may need to follow-up with oncology Otherwise from neurology standpoint patient is stable and could be discharged Jesús Nair MD Qualifiers: Altered mental status type: disorientation Qualified Code(s): R41.0 - Disorientation, unspecified (2) History of chronic lymphocytic leukemia Current Visit: No Status: Chronic (3) Marijuana smoker Current Visit: Yes Status: Acute Objective - Constitutional Vitals: Temp Pulse Resp BP Pulse Ox 98.2 F 64 16 110/74 97 12/11/17 06:39 12/11/17 06:39 12/11/17 06:39 12/11/17 06:39 12/11/17 06:39 Results - Laboratory Findings CBC and BMP: 12/11/17 04:05 12/11/17 04:05 Abnormal lab findings: Abnormal lab results WBC 81.3 K/mcL (4.3-11.1) H* 12/11/17 04:05 RBC 4.05 M/mcL (4.19-5.50) L 12/11/17 04:05 Hgb 11.7 g/dL (12.9-16.9) L 12/11/17 04:05 Hct 36.1 % (37.5-50.1) L 12/11/17 04:05 Plt Count 103 K/mcL (140-400) L 12/11/17 04:05 Lymphocytes # 74.8 K/mcL (0.6-4.6) H 12/11/17 04:05 Monocytes # 1.6 K/mcL (0.0-1.3) H 12/11/17 04:05 Reactive Lymphocytes Present (Not Present) A 12/11/17 04:05 Smudge Cells Present (Not Present) A 12/11/17 04:05 Platelet Estimate Decreased (Normal) L 12/11/17 04:05 Chloride 108 mEq/L (98-107) H 12/11/17 04:05 POC Glucose 101 mg/dL (70-99) H 12/10/17 21:15
[2017-12-11 11:34] VITALS: BP 123/87
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
--- NOTE | 2017-12-16 14:56 | EEG/EMG/Oth Biometrics Report ---
EEG Procedure Report Date of procedure: 12/09/17 EEG Procedure: Routine EEG Procedure Note: This is a routine 21 channel digital EEG performed utilizing 10- 20 international electrode placement system. FINDINGS: Patient has a predominant waking background frequency that is average voltage 8 to 10 Hertz alpha activity in the posterior region, normal amplitude symmetrical over the both hemispheres reactive to eyes opening and closing record continued to show alpha activity intermixed with some theta off and on, no abnormal activity recorded, predominantly no evidence of any spike wave discharges or any lateralizing abnormalities, Photic stimulation did not produce any convulsive response. Intermittent EMG artifacts were noted. Stage II sleep was not achieved. Impression: Normal awake drowsy electroencephalogram. No epileptiform discharges or any other paroxysmal activities noted. ( Please note that normal EEG does not exclude the diagnosis of seizures or epilepsy, clinical correlation is suggested)
== END 2017-12-11 14:55 | disposition home or self-care (01) ==
LOC: 3BNU
PROVIDERS: ADMIT Internal Medicine; ATTEND Internal Medicine